=== PATIENT | male | born 1970 | race Caucasian/White ===

== ENCOUNTER 2017-07-31 11:58 | Observation (INO) | END 2017-07-31 15:30 | disposition home or self-care (01) ==

== ENCOUNTER 2018-05-04 06:12 | Inpatient (IN) | payer OTHER ==
[2018-05-03 17:19] VITALS: BMI 31.1
[~2018-05-04] VITALS: Ht 180.3 cm; Wt 102.7 kg
[2018-05-04] VITALS (22 sets, daily range): BP systolic 111–160; BP diastolic 55–86; PULSE 61–92; RESP 12–97; Ht 180.3 cm; Wt 102.7 kg
[~2018-05-04 06:12] MED LIST: CEFAZOLIN 2 GM/50 ML (PMX) 50 ML IVPB ONE; ESCI20TA PO; LACTATED RINGER'S 1,000 ML IV* SCH; OMEP20CA16 PO
[2018-05-04] MEDS ORDERED: ZOLP10TA PO (06:35)
[2018-05-04] MEDS ORDERED: ESCI20TA PO (06:36)
[2018-05-04] MEDS ORDERED: OMEP40CA6 PO (06:36)
[2018-05-04] MEDS ORDERED: SEVOFLURANE 15 MIN ONE (07:00)
[2018-05-04] MEDS ORDERED: DEXAMETHASONE 4 MG/ML 5 ML INJ ONE (07:00)
[2018-05-04] MEDS ORDERED: ONDANSETRON 4 MG INJ ONE (07:00)
[2018-05-04] MEDS ORDERED: CEFAZOLIN 1 GM INJ ONE ×2 (07:00→07:48)
[2018-05-04] MEDS ORDERED: LIDOCAINE 2% (SDV) 5 ML INJ ONE (07:00)
--- NOTE | 2018-05-04 07:18 | PREAC ---
Date/Time of Note Date/Time of Note DATE: 05/04/18 TIME: 07:17 Anesthesia Eval and Record Evaluation Time Pre-Procedure Interview DATE: 05/04/18 TIME: 07:17 Age 47 Sex male NPO: 8 hrs Preoperative diagnosis lumbar myelopathy Planned procedure anterior lumbar fusion Past Medical History Past Medical History: Includes Neuro: Peripheral neuropathy GI: GERD Psych: Depression, Anxiety Surgery & Anesthesia Issues No known issue Meds Anticoagulation: No Beta Alejandro within 24 hr: No Reason Beta Alejandro not given: Pt. not on B-Alejandro Reported Medications Escitalopram Oxalate* (Lexapro*) 20 Mg Tablet, 20 MG PO DAILY, #30 TAB 05/04/18 Omeprazole* (Omeprazole*) 40 Mg Capsule.dr, 40 MG PO BID, #30 CAP 05/04/18 Zolpidem Tartrate* (Ambien*) 10 Mg Tablet, 10 MG PO QHS PRN for INSOMNIA, TAB 05/04/18 Discontinued Reported Medications Escitalopram Oxalate* (Lexapro*) 20 Mg Tablet, 20 MG PO DAILY, #30 TAB 07/31/17 Omeprazole* (Omeprazole*) 20 Mg Capsule.dr, 20 MG PO DAILY, #30 CAP 07/31/17 Current Medications Lactated Ringer's 1,000 ml @ 0 mls/hr Q0M IV* ; Start 05/04/18 at 06:00; Stop 05/04/18 at 23:00 Meds reviewed: Yes Allergies Coded Allergies: No Known Allergy (Unverified , 05/04/18) Allergies Reviewed: Yes Labs/Studies Labs Reviewed: Reviewed by anesthesiologist Blood Bank Test 05/04/18 06:46 Blood Product Summary Counts test: N/A Studies: ECG, CXR Pre-procedure Exam Last vitals Vital Signs Date Temp Pulse Resp B/P (MAP) Pulse Ox O2 O2 Flow FiO2 Time Delivery Rate 05/04/18 97.1 61 18 131/77 99 Room Air 06:40 (95) Airway: Adequate mouth opening, Adequate thyromental dist Mallampati: Mallampati III Teeth: Normal Lung: Normal Heart: Normal ASA Physical Status ASA physical status: 3 Emergency: None Planned Anesthetic General/MAC: ETT Planned Pain Management Parenteral pain med, Local by surgeon Pre-operative Attestations Prior to commencing anesthesia and surgery, the patient was re-evaluated, there was verification of: *The patient's identity *The results of appropriate recent lab work and preoperative vital signs *The above evaluation not changing prior to induction *Anesthetic plan, risk benefits, alternative and complications discussed with patient/family; questions answered; patient/family understands, accepts and wishes to proceed. LIANA SINGH MD May 04, 2018 07:18
[2018-05-04] MEDS ORDERED: LORAZEPAM 2 MG INJ IV PRN (07:30)
[2018-05-04] MEDS ORDERED: IPRATROPIUM (NEB) 0.5 MG/2.5 ML AMP HHN PRN (07:30)
[2018-05-04] MEDS ORDERED: FENTAnyl 50 MCG/ML VIAL IV PRN ×2 (07:30)
[2018-05-04] MEDS ORDERED: HYDROmorphONE 1 MG/5 ML IV SYRINGE IV PRN ×3 (07:30)
[2018-05-04] MEDS ORDERED: hydrALAzine 20 MG INJ IV PRN (07:30)
[2018-05-04] MEDS ORDERED: LEVALBUTEROL (NEB) 1.25 MG/0.5 ML AMP HHN PRN (07:30)
[2018-05-04] MEDS ORDERED: HALOPERIDOL 5 MG INJ IV PRN (07:30)
[2018-05-04] MEDS ORDERED: PROCHLORPERAZINE 10 MG INJ IV PRN (07:30)
[2018-05-04] MEDS ORDERED: MEPERIDINE 25 MG INJ IV PRN (07:30)
[2018-05-04] MEDS ORDERED: ONDANSETRON 4 MG INJ IV PRN ×2 (07:30→14:00)
[2018-05-04] MEDS ORDERED: DIPHENHYDRAMINE 50 MG INJ IV PRN (07:30)
[2018-05-04] MEDS ORDERED: LABETALOL HCL 20MG INJ IV PRN (07:30)
[2018-05-04] MEDS ORDERED: MIDAZOLAM 1 MG/ML 2 ML INJ IV PRN (07:30)
[2018-05-04] MEDS ORDERED: MIDAZOLAM 1 MG/ML 2 ML INJ ONE (07:34)
[2018-05-04] MEDS ORDERED: PROPOFOL 20 ML ONE (07:34)
[2018-05-04] MEDS ORDERED: SUCCINYLCHOLINE CHLORIDE 100 MG/5 ML SYG IV ONE (07:35)
[2018-05-04] MEDS ORDERED: ROCURONIUM 50 MG INJ ONE (07:35)
--- NOTE | 2018-05-04 07:35 | HPN ---
Date/Time of Note Date/Time of Note DATE: 05/04/18 TIME: 07:35 Interval H&P Admission Note Pt. seen H&P reviewed: No system changes AUTUMN SWENSON MD May 04, 2018 07:35
[2018-05-04] MEDS ORDERED: METOCLOPRAMIDE 10 MG INJ ONE (07:37)
[2018-05-04] MEDS ORDERED: GELATIN SIZE 100 SPONGE ONE (07:48)
[2018-05-04] MEDS ORDERED: BUPIVACAINE 0.5%/EPI (SDV) 30 ML INJ ONE (07:48)
[2018-05-04] MEDS ORDERED: HEPARIN 1000 UNITS/ML 10 ML INJ ONE (07:49)
[2018-05-04] MEDS ORDERED: THROMBIN 5000 UNIT VIAL ONE (07:49)
[2018-05-04] MEDS ORDERED: HYDROmorphONE 2 MG/ML SYG ONE (10:14)
[2018-05-04] MEDS ORDERED: LABETALOL HCL 20MG INJ ONE (10:17)
[2018-05-04] MEDS ORDERED: NACL 0.9% 3 ML SYG IV SCH (14:00)
[2018-05-04] MEDS ORDERED: PROCHLORPERAZINE 10 MG TAB PO PRN (14:00)
[2018-05-04] MEDS ORDERED: HYDROCODONE/APAP (5/325) TAB PO PRN (14:00)
[2018-05-04] MEDS ORDERED: NALOXONE (0.4 MG/ML) INJ IV PRN (14:00)
[2018-05-04] MEDS ORDERED: HYDROmorphONE 0.2 MG/ML PCA IV SCH (14:00)
[2018-05-04] MEDS ORDERED: AL HYDROX/MG HYDROX/SIMETH 30 ML CUP PO PRN (14:00)
--- NOTE | 2018-05-04 14:15 | OPR ---
Date/Time of Note Date/Time of Note DATE: 05/04/18 TIME: 14:05 Operative Report Free Text/Dictation DATE OF OPERATION: 05/04/2018 PREOPERATIVE DIAGNOSES: 1. L4-5 severe lumbar degenerative disk disease w/ Left greater than right sided foraminal stenosis with radiculopathy 2. Obesity (BMI 31.6 kg.m2) POSTOPERATIVE DIAGNOSES: 1. L4-5 severe lumbar degenerative disk disease w/ Left greater than right sided foraminal stenosis with radiculopathy 2. Obesity (BMI 31.6 kg.m2) OPERATION PERFORMED: 1. Anterior lumbar interbody fusion L4-5 2. Placement of anterior interbody device L4-5 3. Placement of posterior spinal segmental instrumentation L4-5 4. Posterior spinal fusion L4-5 5. Interpretation of neuromonitoring SURGEON: Autumn Swenson MD Vascular surgeon: Mikie Holloway MD ANESTHESIA: General endotracheal ESTIMATED BLOOD LOSS: 250 cc SURGICAL INDICATION: The patient is a 47 year-old woman who presents with an increasing history of back and bilateral (left greater than right) leg pain. The patient was found to have severe L4-5 with associated foraminal stenosis in setting of prior laminectomy. The patient had failed conservative treatments. Risks, benefits and alternatives to an anterior and posterior spinal fusion with instrumentation were explained to the patient including but not exclusive of bleeding, infection, visceral injury, nerve injury, nonunion, instrumentation failure, lack of symptom relief, myocardial infarction, stroke, and pulmonary embolism, and they wished to proceed. DESCRIPTION OF TECHNIQUE: The patient was identified in the preoperative area and taken to the operating room. Rapid induction of general endotracheal anesthesia was performed. Patient was given 2 grams of IV ancef for prophylaxis. The patient was positioned in the supine position on the operative table. All bony prominences were well padded. The patient's abdomen and left flank were prepped and draped in the usual sterile fashion. An oblique skin incision was made across the L4-L5 level by our vascular surgeon Dr. Holloway. Please note that given the patient's obesity with BMI of 31.6 and adhesions an additional time (1 hour) was taken for exposure and placement of the anterior interbody as well as posterior decompression and instrumentation. After the exposure was completed, I performed a L4-L5 diskectomy. The disc was incised using a sharp 15 mm blade. I then used a hoyt elevator to loosen the disk material from the superior and inferior endplates. I then used a rongeur to remove the disc material and a series of curved and straight curettes to evacuate the disc space. I also used a series of pituitaries and kerrisons to ensure appropriate end plate preparation. Attention was placed to ensure removal of disk material to bleeding endplates without violation of the endplate. I then used the trial rasps to prepare and size the disc space and was able to place a 15 mm trial allograft FRA spacer with 8 degrees of lordosis. To ensure appropriate sizing of the implant, I checked for fit and placement under C arm control and I felt the 8 degree lordotic 15 mm cage gained good lordosis and christian of disc height and was an appropriate fit. I then inserted the 15mm RFA cage after the trail. This cage was filled with a extra-small BMP and morselized bone allograft. A butress screw with a washer was then placed in the L4 vertebral body using the guide under fluoroscopy . Additional morselized allograft was placed around and anterior to the cage in the disc space. 2mL of tisseal was also used prior to placement of the cage in order to reduce the risk of BMP radiculitis. The wound was then irrigated. X-rays were taken to check for instruments. The wound was then closed by our vascular access surgeon in standard technique. The posterior rectus sheath and anterior rectus sheath were both repaired. Sterile dressing was then placed. Attention was then turned toward the decompression and instrumented fusion procedure from L4-L5. At this point, the patient was flipped to the prone position with all bony prominences well-padded on a Shiraz table. We ensured that the antibiotics were appropriately redosed. The lumbar spine was then prepped and draped in sterile fashion. A timeout was once again performed. We then focused on placement of posterior spinal segmental instrumentation from L4-5. Using intraoperative fluoroscopy, the pedicles were identified at each level. Care was taken to alter the fluoroscopic view to have a true AP and lateral at each level. Jamshidi needles were then passed down to the lateral aspect of the pedicles through stab incisions. The Jamshidi needles were mal leted into the pedicles. These were also performed under EMG guidance. Care was taken to ensure that the needles did not pass the medial wall of the pedicle on the AP view prior to checking that the needle was past the posterior wall of the vertebral body. The needles were then malleted further into the vertebral bodies themselves. Guidewires were passed through the needles and the needles were removed. Taps were applied over the guidewires. Screws were then placed bilaterally into the vertebral bodies. AP and lateral views confirmed appropriate placement of the instrumentation. Attention was turned toward the posterior spinal fusion from L4-5. Rods were selected of the appropriate length and placed into the screw heads. End caps were applied and final tightening was performed using a sbrjfi-sdfdujg-qwlvhm wrench. The exposed facet joints were decorticated using a ayana. A small nikolay ining amount of allograft was placed into the facet joints to facilitate the posterior fusion. The wound was irrigated copiously using normal saline. The fascia was then closed using 1 Vicryl in interrupted fashion. Subcutaneous tissue was closed using 2-0 Vicryl in interrupted fashion. A drain (medium Hemovac)was also placed in the wound. Skin was closed using a running 4-0 Monocryl stitch. The wounds were dressed using Dermabond, sterile gauze and Tegaderm. The patient was returned to the supine position. The patient was extubated immediately postoperatively and taken to the recovery room in stable condition. Patient tolerated the procedure well and left the operating room in stable condition. Procedure Date: May 04, 2018 Preoperative Diagnosis 1. L4-5 severe lumbar degenerative disk disease w/ Left greater than right sided foraminal stenosis with radiculopathy 2. Obesity (BMI 31.6 kg.m2) Postoperative Diagnosis 1. L4-5 severe lumbar degenerative disk disease w/ Left greater than right sided foraminal stenosis with radiculopathy 2. Obesity (BMI 31.6 kg.m2) Operation/Procedure Performed 1. Anterior lumbar interbody fusion L4-5 2. Placement of anterior interbody device L4-5 3. Placement of posterior spinal segmental instrumentation L4-5 4. Posterior spinal fusion L4-5 5. Interpretation of neuromonitoring Surgeon see signature line Sander [employer]isher Vascular access: Mikie Holloway MD (Anterior only) Anesthesia Type: general Estimated Blood Loss: 200 - 250 ml's Transfusion none Specimen None Grafts/Implants L4 and L5 Nuvasive Screws 6.5 x 45mm x4 Extra-Small BMP 30 cc of cortico-cancellous bone ALTO CINCO/Synthes 15mm 8 degree Lordotic Anterior FRA allograft cage 6x24 mm buttress scew and washer Complications none Pt Condition Post Procedure: stable Disposition: PACU Procedure Description The patient was identified in the preoperative area and taken to the operating room. Rapid induction of general endotracheal anesthesia was performed. Patient was given 2 grams of IV ancef for prophylaxis. The patient was positioned in the supine position on the operative table. All bony prominences were well padded. The patient's abdomen and left flank were prepped and draped in the usual sterile fashion. An oblique skin incision was made across the L4-L5 level by our vascular surgeon Dr. Holloway. Please note that given the patient's obesity with BMI of 31.6 and adhesions an additional time (1 hour) was taken for exposure and placement of the anterior interbody as well as posterior decompression and instrumentation. After the exposure was completed, I performed a L4-L5 diskectomy. The disc was incised using a sharp 15 mm blade. I then used a hoyt elevator to loosen the disk material from the superior and inferior endplates. I then used a rongeur to remove the disc material and a series of curved and s traight curettes to evacuate the disc space. I also used a series of pituitaries and kerrisons to ensure appropriate end plate preparation. Attention was placed to ensure removal of disk material to bleeding endplates without violation of the endplate. I then used the trial rasps to prepare and size the disc space and was able to place a 15 mm trial allograft FRA spacer with 8 degrees of lordosis. To ensure appropriate sizing of the implant, I checked for fit and placement under C arm control and I felt the 8 degree lordotic 15 mm cage gained good lordosis and christian of disc height and was an appropriate fit. I then inserted the 15mm RFA cage after the trail. This cage was filled with a extra- small BMP and morselized bone allograft. A butress screw with a washer was then placed in the L4 vertebral body using the guide under fluoroscopy . Additional morselized allograft was placed around and anterior to the cage in the disc space. 2mL of tisseal was also used prior to placement of the cage in order to reduce the risk of BMP radiculitis. The wound was then irrigated. X-rays were taken to check for instruments. The wound was then closed by our vascular access surgeon in standard technique. The posterior rectus sheath and anterior rectus sheath were both repaired. Sterile dressing was then placed. Attention was then turned toward the decompression and instrumented fusion procedure from L4-L5. At this point, the patient was flipped to the prone position with all bony prominences well-padded on a Shiraz table. We ensured that the antibiotics were appropriately redosed. The lumbar spine was then prepped and draped in sterile fashion. A timeout was once again performed. We then focused on placement of posterior spinal segmental instrumentation from L4-5. Using intraoperative fluoroscopy, the pedicles were identified at each level. Care was taken to alter the fluoroscopic view to have a true AP and lateral at each level. Jamshidi needles were then passed down to the lateral aspect of the pedicles through stab incisions. The Jamshidi needles were malleted into the pedicles. These were also performed under EMG guidance. Care was taken to ensure that the needles did not pass the medial wall of the pedicle on the AP view prior to checking that the needle was past the posterior wall of the vertebral body. The needles were then malleted further into the vertebral bodies themselves. Guidewires were passed through the needles and the needles were removed. Taps were applied over the guidewires. Screws were then placed bilaterally into the vertebral bodies. AP and lateral views confirmed appropriate placement of the instrumentation. Attention was turned toward the posterior spinal fusion from L4-5. Rods were selected of the appropriate length and placed into the screw heads. End caps were applied and final tightening was performed using a qydpxd-ytzeumo-eqmwof wrench. The exposed facet joints were decorticated using a ayana. A small remaining amount of allograft was placed into the facet joints to facilitate the posterior fusion. The wound was irrigated copiously using normal saline. The fascia was then closed using 1 Vicryl in interrupted fashion. Subcutaneous tissue was closed using 2-0 Vicryl in interrupted fashion. A drain (medium Hemovac)was also placed in the wound. Skin was closed using a running 4-0 Monocryl stitch. The wounds were dressed using Dermabond, sterile gauze and Tegaderm. The patient was returned to the supine position. The patient was extubated immediately postoperatively and taken to the recovery room in stable condition. Patient tolerated the procedure well and left the operating room in stable condition. AUTUMN SWENSON MD May 04, 2018 14:15
[2018-05-04] MEDS ORDERED: FENTAnyl 50 MCG/ML VIAL ONE (14:55)
[2018-05-04] MEDS ORDERED: HYDROmorphONE 1 MG/5 ML IV SYRINGE IV ONE (14:55)
--- NOTE | 2018-05-04 16:05 | NUR ---
PACU NOTES: PATIENT AWAKE AND ALERT. ON ROOM AIR 97% S/P L4-L5 ANTERIOR AND POSTERIOR INTER BODY FUSION AND INSTRUMENTATION W/ DRESSING ON ABDOMEN AND BACK W/ TEGADERM NO DRAIN. NO BLEEDING ABLE TOMOVE AND REPOSITION IN BED ASSESSED BY DR. SWENSON IN PACU. RIGHT IJ CENTRAL LINE AND A-LINE ON RIGHT RADIAL DISCONTINUED NO HEMATOMA NO BLEEDING. PILLAI CATH DRAINING YELLOW URINE. LITHOGRAPHIC PLATEMAKER DILAUDID STARTED AND MEDICATED WITH FENTANYL FOR PAIN. TOLERATED P.O FLUIDS. ABLE TO DO INCENTIVE SPIROMETER UPTO [address] BROCK HERE IN PACU. PHYSICAL THERAPY WORKED WITH THE PATIENT. NOTIFIED OF TRANSFER TO ROOM 424.
--- NOTE | 2018-05-04 16:16 | NUR ---
PT EVAL Therapy day number 1 Evaluation Start Time 15:20 Evaluation Total Time 0 min Subjective Current complaint of pain Pain Scale NUMERIC Pain Intensity 9 (0-10) Patient Stated Goal for Pain Relief 10 (0-10) Pain Level Comment low back and hip pain Pre Treatment Vital Signs Stable Yes - 143/55, 84 bpm, 98%O2 sats on RA Exercise Assessment Label Bilat Lower Extremity Exercise Type Active ROM Additional Exercise Comments semi-supine APs, heel slides Supine to Sit Minimum Assist Transfer Sit to Stand Ability Contact Guard Assist Bed Mobility Sit to Supine Contact Guard Assist Sitting Tolerance 15 min Patient uses wheelchair Not Applicable Gait Assist Levels Contact Guard Assist Assistive Devices Front Wheel Walker Ambulation Distance 2 feet Additional Gait Comments pre-gait training, forward and backwards ambulation 2' limited due to lines Static Sitting Balance Good Dynamic Sitting Balance Good Standing Static Balance Fair plus Dynamic Standing Balance Fair plus Additional Balance Assessments Comments FWW Safety Judgement Good Activity Tolerance Good Equipment Present A pump Ackerman Catheter IV pump TICKETING CLERK Additional Equipment Present LS CORSET Post Treatment Pain Intensity 9 0-10 Variance Documentation SEE PT EVAL PT Technical Record Comment PT EVAL Pt is a 47 yo M with PMH of L4-L5 umbar degenerative disk disease with L > R-sided foraminal stenosis with radiculopathy who is now S/P anterior lumbar interbody fusion L4-L5, placement of anterior interbody device L4-L5, placement of posterior spinal segemental instrumentation L4-L5, posterior spinal fusion L4-L5. Pt received in RECOVERY ROOM. Precautions: spinal precautions, LSO when OOB (LS corset okay until pt received LSO) PLOF: Pt lives with and kids in a 2SH with 0STE. Pt has shower access on the first floor. Ambulatory without AD. Pt has a FWW at home. CLOF: kettle girl cleared pt for PT evaluation. Pt received in bed, vitals assessed and stable, agreeable to PT eval. Pt educated in spinal precautions, use of LSO (corset at this time), and purpose of PT evaluation. Pt donned LS corset for all OOB activities. Mobility assessed as described above, pt able to maintain spinal precautions with sup>sit and initiate pre-gait training 2' forward and backwards x 3. Pt returned to bed, all needs in reach, no signs of distress, RN notified of pt's status. Recommendation: Pt presents at [facility]-Daniel level assist for all mobility tasks and able to maintain spinal precautions throughout. Gait distance (2') limited due to recovery room lines and tubes. Pt will benefit from additional skilled PT for further moblity training including stair training. Anticipating home discharge with family assistance as needed once cleared by MD. Pt may need FWW. PLan: Continue c PT POC (QID x 7), including gait and stair training
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
--- NOTE | 2018-05-04 19:00 | NUR ---
EOSS A AND O X 4. ARRIVED TO UNIT POST ANTERIOR AND POSTERIOR BACK SURGERY ON L4-L5. DRESSINGS CLEAN, DRY AND INTACTPATIENT REPORTS HIS PAIN IS 7/10, AND THAT THIS IS TOLERABLE FOR HIM. EDUCATED ON USE OF BIOMATERIALS ENGINEER AND ENCOURAGED APTEINT TO ALERT RN IF PAIN WAS NOT WELL MANAGED WITH BIOMATERIALS ENGINEER DILAUDID. ENCOURAGED USE OF IS. VSS. TOLERATING CLEAR LIQUID DIET. HOURLY ROUNDING PERFORMED, BED KEPT IN LOW, LOCKED POSITION, CALL LIGHT WITHIN REACH.
[2018-05-04] MEDS ORDERED: KETOROLAC 30 MG INJ IV STA (19:53)
--- NOTE | 2018-05-04 20:04 | OPR ---
DATE OF OPERATION: PREOPERATIVE DIAGNOSIS: Degenerative disk disease, lumbosacral spine. POSTOPERATIVE DIAGNOSIS: Degenerative disk disease, lumbosacral spine. PROCEDURES: 1. Anterior retroperitoneal exposure interbody fusion lumbosacral spine L4 to L5. 2. Modifier 22, unusually difficult operation secondary to adhesions. 3. Mobilization of the aorta and vena cava. 4. Ligation of the left iliolumbar vein. SURGEON: Joshua Nova MD COSURGEON: Brien Moreland MD ESTIMATED BLOOD LOSS: 100 mL. ANESTHESIA: General. INFORMED CONSENT: Risks, benefits, complications, alternative therapies, high-risk nature of the ope ration were fully explained to the patient and the family, consent obtained. Risks and benefits that were explained to the patient and the family included but not limited to bleeding, infection, damage to bowel, damage to ureter, wound infection, wound dehiscence, DVT, PE, loss of limb, loss of life, high-risk nature of the operation were fully explained and stressed to the patient. All questions we re answered. OPERATIVE TECHNIQUE: The patient was placed in supine position, prepped and draped in usual sterile fashion. Time-out was called. Antibiotics were given. I made an 8 cm incision in the left lower qu adrant horizontal fashion below the umbilicus. Incision was taken down to subcutaneous tissue which was then opened using electrocautery. Left anterior rectus sheath was opened in the direction of the wound. Left rectus muscle was mobilized superiorly and inferiorly about 5 cm. Posterior rectus she ath was incised superiorly about 3 cm. Bookwalter retractor was placed retracting the bowel contents to the right, left rectus muscle to the left. I dissected the left common iliac artery and vein. I identified the psoas muscle ureter and protected the ureter. Left common iliac artery and vein was dissected using a peanut dissector. The left iliolumbar veins were ligated using 2-0 silk ties and a titanium clip. The lowest segmental vessels on the left side were ligated using titanium clips. Ex posure for the aorta and vena cava were mobilized to the right side. After mobilization was done, ex posure for L4 to L5 was obtained by retracting aorta and vena cava to the right. We proceeded with t he diskectomy and placement of the new cage. Please refer to Dr. Swenson's dictation for the detai ls of that operation. After all the x-rays were satisfactory read by Dr. Swenson, needle counts an d sponge count was correct. The wound was irrigated using antibiotic solution. The posterior rectus sheath was closed using 0 Vicryl suture in running fashion. Anterior rectus sheath was closed using a #1 Vicryl suture in running fashion with interrupted sutures in the middle. The wound was irrigat ed again and closed in 2 layers of 2-0 Vicryl suture for subQ and Steri-Strips for the skin. The pat ient tolerated procedure well. Dictated By: JOSHUA NOVA MD FM/NTS Conf#: [id number] DID#: [id number] CC: AUTUMN SWENSON MD; MIGUEL ANGEL BROCK MD;*[facility]*
[2018-05-04] MEDS: RANITIDINE 150 MG TAB PO SCH (21:05)
[2018-05-04] MEDS: SOD CHLORIDE 0.9% 1,000 ML IV SCH (21:06)
[2018-05-04] MEDS: HYDROmorphONE 0.2 MG/ML PCA IV SCH (22:19)
[2018-05-05] VITALS: BP 107/65; PULSE 95; RESP 20
--- NOTE | 2018-05-05 02:19 | PAC ---
Date/Time of Note Date/Time of Note DATE: 05/05/18 TIME: 02:19 Post-Anesthesia Notes Post-Anesthesia Note Last documented vital signs Vital Signs Date Temp Pulse Resp B/P (MAP) Pulse Ox O2 O2 Flow FiO2 Time Delivery Rate 05/04/18 97.9 88 20 117/70 97 Room Air 19:30 (86) Activity: WNL Respiratory function: WNL Cardiovascular function: WNL Mental status: Baseline Pain reasonably controlled: Yes Hydration appropriate: Yes Nausea/Vomiting absent: Yes LIANA SINGH MD May 05, 2018 02:19
[2018-05-05] MEDS: SOD CHLORIDE 0.9% 1,000 ML IV SCH ×2 (03:09→15:05)
[2018-05-05] MEDS: PANTOPRAZOLE (EC) 40 MG TAB PO SCH (05:18)
--- NOTE | 2018-05-05 06:11 | NUR ---
PT HAS RESTED MOST NOC WITH NO COMPLAINTS VERBALIZED. AWAKENS EASILY WHEN ENTERING ROOM ET STATES PAIN IS CONTROLLED WITH THE FIELD SALES REPRESENTATIVE. VSS AFEBRILE. PILLAI PATENT DRAINING TO GRAVITY. DRINKING FLUIDS WITH NO SS N/V. NOW IN BED WATCHING TV. USING FIELD SALES REPRESENTATIVE AT REGULAR INTERVALS. VSS AFEBRILE. WILL CONTINUE WITH POC
[2018-05-05] MEDS: ACETAMINOPHEN 325 MG TAB PO PRN ×3 (07:19→23:02)
[2018-05-05] MEDS: HYDROmorphONE 0.2 MG/ML PCA IV SCH ×2 (07:43→17:34)
--- NOTE | 2018-05-05 08:15 | NUR ---
PT NOTE Therapy day number 2 Subjective Current complaint of pain Pain Scale NUMERIC Pain Intensity 5 (0-10) Patient Stated Goal for Pain Relief 0 (0-10) Pain Level Comment back pain Transfer Training Start Time 08:15 Supine to Sit Stand by Assist Transfer Sit to Stand Ability Stand by Assist Bed Mobility Sit to Supine Stand by Assist Transfer Training End Time 08:30 Total Transfer Training Time 15 min (8-127) Patient uses wheelchair Not Applicable Gait Training Start Time 08:30 Gait Assist Levels Stand by Assist Assistive Devices Front Wheel Walker Ambulation Distance 50 feet Additional Gait Comments slow nettie, reciprocal gait, decreased step length/stride, steady gait Gait Training End Time 08:54 Total Gait Training Treatment Time 24 min (8-127) Static Sitting Balance Good Dynamic Sitting Balance Good Standing Static Balance Good Dynamic Standing Balance Fair plus Additional Balance Assessments Comments FWW Safety Judgement Good Activity Tolerance Good Equipment Present A pump Ackerman Catheter IV pump LITIGATION ASSISTANT Additional Equipment Present LS CORSET Post Treatment Pain Intensity 5 0-10 Quality Indicators Dizziness Variance Documentation SEE BELOW AND PT NOTE Total Treament Time 39 min (8-127) Total Minutes 39 Total Units 3 PT Technical Record Comment PT NOTE S: Pt stated, "I didn't get much sleep last night, so I am just barely getting comfortable." Agreeable for PT and cleared per MAR Flores O: Received pt in R side-lying, alert. Reeducated pt w/spinal precautions and pt verbalized fair understanding. Bed mobility w/HOB elevated using BR SBA/Supervised. Pt reported mild dizziness upon sitting EOB, however reported it went away within 1 minute. Pt donned/doffed LS corset at EOB [place] (LSO brace has not arrived yet). STS to FWW SBA/Supervised. Gait training performed w/FWW 50' x 2 SBA/Supervised. Noted slow nettie, reciprocal gait, decreased step length/stride, (B) shoulder tension, steady gait, and no LOB/buckling. Pt required VCs/TCs to increase nettie/step length/stride, and relax shoulders. Assisted pt back to room BTB. Left pt in comfort position, call light/phone within reach, SCD's reapplied, bed alarmed, and all needs met. MAR Flores informed of pt's status. A: Good tolerance to tx. Pt showed no signs of distress or SOB during or after tx. No c/o nausea throughout tx. Bed mobility, transfers, and gait assistance/distance improved compared to previous tx. P: Continue POC and progress as tolerated.
[2018-05-05 08:28] VITALS: BP 115/64; PULSE 78; RESP 18
[2018-05-05] MEDS: METHOCARBAMOL 500 MG TAB PO PRN ×2 (09:30→18:49)
[2018-05-05] MEDS: DOCUSATE SODIUM 100 MG CAP PO SCH ×2 (09:30→20:08)
[2018-05-05] MEDS: ESCITALOPRAM 10 MG TAB PO SCH (09:30)
--- NOTE | 2018-05-05 09:30 | NUR ---
RIGID BRACE ORDERED TO CENTRAL SUPPLY AND REQUESTED TO DELIVERY TODAY
--- NOTE | 2018-05-05 11:31 | NUR ---
PT NOTE Therapy day number 2 Subjective Current complaint of pain Pain Scale NUMERIC Pain Intensity 5 (0-10) Patient Stated Goal for Pain Relief 0 (0-10) Pain Level Comment back and (B) hip pain Transfer Training Start Time 11:31 Supine to Sit Supervised Transfer Sit to Stand Ability Supervised Bed Mobility Sit to Supine Supervised Transfer Training End Time 11:45 Total Transfer Training Time 14 min (8-127) Patient uses wheelchair Not Applicable Gait Training Start Time 11:45 Gait Assist Levels Supervised Assistive Devices Front Wheel Walker Ambulation Distance 200 feet Additional Gait Comments slow nettie, reciprocal gait, decreased step length/stride, steady gait Gait Training End Time 12:11 Total Gait Training Treatment Time 26 min (8-127) Stair Climbing Ability Stand by Assist Number of Stairs 4 Stairs Additional Stairs Assist Comments 4 steps x 1 step to pattern using 1 rail L side w/VCs for sequence Static Sitting Balance Good Dynamic Sitting Balance Good Standing Static Balance Good Dynamic Standing Balance Fair plus Additional Balance Assessments Comments FWW Safety Judgement Good Activity Tolerance Good Equipment Present A pump Ackerman Catheter IV pump WEIGHING STATION OPERATOR Additional Equipment Present LS CORSET Post Treatment Pain Intensity 7 0-10 Variance Documentation SEE BELOW AND PT NOTE Total Treament Time 40 min (8-127) Total Minutes 40 Total Units 3 PT Technical Record Comment PT NOTE S: Pt stated, "I am alright." Agreeable for PT and cleared per MAR Flores O: Received pt in semi-fowlers, alert. Bed mobility w/HOB elevated using BR Supervised. Pt donned/doffed LS corset at EOB [place] (LSO brace has not arrived yet). STS to FWW Supervised. Gait training performed w/FWW 200' Supervised. Noted slow nettie, reciprocal gait, decreased step length/stride, (B) shoulder tension, steady gait, and no LOB/buckling. Pt required Min VCs/TCs to increase nettie/step length/stride, and relax shoulders. Stair training performed 4 steps x 1 step to pattern using 1 rail L side w/VCs for sequence SBA, fair demonstration. Assisted pt back to room BTB. Left pt in comfort position, call light/phone within reach, SCD's reapplied, bed alarmed, and all needs met. MAR Flores informed of pt's status and pt was left attended w/RN Kerline G. post tx. A: Good tolerance to tx. Pt showed no signs of distress or SOB during or after tx. No c/o dizziness or nausea throughout tx. Bed mobility, transfers, and gait assistance/distance improved compared to previous tx. P: Continue POC and progress as tolerated.
--- NOTE | 2018-05-05 12:40 | CONS ---
Date/Time of Note Date/Time of Note DATE: 05/05/18 TIME: 12:39 Assessment/Plan Assessment/Plan Assessment/Plan 1. Stable post op lumbar back surgery 2. Labs reviewed Result Diagram: 05/05/187 05/05/187 Results 24hrs Laboratory Tests Test 05/05/18 04:27 05/05/18 07:36 Hemoglobin 12.3 L Hematocrit 37.8 L Sodium Level 139 Potassium Level 4.2 Chloride Level 101 Carbon Dioxide Level 29 Anion Gap 9 Blood Urea Nitrogen 11 Creatinine 1.06 Est Glomerular Filtrat Rate mL/min > 60 Glucose Level 121 Calcium Level 8.5 Lab Scanned Report REFERENCE LAB Consultation Date/Type/Reason Admit Date/Time May 04, 2018 at 06:12 Initial Consult Date Detailed Summary Respiratory: cough (mild and not productive) Cardiovascular: No chest pain, No lightheadedness Gastrointestinal: no complaints Genitourinary: other (heath in place) Exam/Review of Systems Vital Signs Vitals Vital Signs Date Temp Pulse Resp B/P (MAP) Pulse Ox O2 O2 Flow FiO2 Time Delivery Rate 05/05/18 18 09:40 05/05/18 98.6 78 115/64 100 Room Air 08:28 (81) Intake and Output 05/04/18 05/04/18 05/05/18 1515:00 23:00 07:00 IntakeIntake Total 2625 ml 1410 ml OutputOutput Total 650 ml 100 ml 1100 ml BalanceBalance 1975 ml -100 ml 310 ml Exam Neck: No jvd Respiratory: clear to auscultation Cardiovascular: regular rate and rhythm Gastrointestinal: soft Extremities: No edema (and no calf tend) Medications Medications Current Medications Acetaminophen/ Hydrocodone Bitart ([place] (5/325)) 1 tab Q4H PRN PO PAIN LEVEL 1-5; Start 05/04/18 at 14:00 Acetaminophen/ Hydrocodone Bitart ([place] (5/325)) 2 tab Q4H PRN PO PAIN LEVEL 6-10; Start 05/04/18 at 14:00 Prochlorperazine (Compazine) 10 mg Q4H PRN PO NAUSEA AND/OR VOMITING; Start 05/04/18 at 14:00 Ondansetron HCl (Zofran Inj) 4 mg Q6H PRN IV NAUSEA AND/OR VOMITING; Start 05/04/18 at 14:00 Al Hydrox/Mg Hydrox/Simethicone (Mag-Al Plus) 15 ml Q4H PRN PO CONSTIPATION; Start 05/04/18 at 14:00 Docusate Sodium (Colace) 100 mg BID PO Last administered on 05/05/18 09:30; Admin Dose 100 MG; Start 05/05/18 at 09:00 Acetaminophen (Tylenol Tab) 650 mg Q4H PRN PO FEVER Last administered on 05/05/18 07:19; Admin Dose 650 MG; Start 05/04/18 at 14:00 IV Flush (NS 3 ml) 3 ml PER PROTOCOL IV ; Start 05/04/18 at 14:00 Naloxone HCl (Narcan) 0.2 mg Q2M PRN IV overdose; Start 05/04/18 at 14:00 Escitalopram Oxalate (Lexapro) 20 mg DAILY PO Last administered on 05/05/18 09:30; Admin Dose 20 MG; Start 05/05/18 at 09:00 Pantoprazole (Protonix Tab) 40 mg DAILY@06 PO Last administered on 05/05/18 05:18; Admin Dose 40 MG; Start 05/05/18 at 06:00 Ranitidine HCl (Zantac) 150 mg HS PO Last administered on 05/04/18 21:05; Admin Dose 150 MG; Start 05/04/18 at 21:00 Sodium Chloride 1,000 ml @ 80 mls/hr [id number] IV Last administered on 05/05/18 03:09; Admin Dose 80 MLS/HR; Start 05/04/18 at 16:00 Hydromorphone HCl (Dilaudid WATER SERVICE SUPERVISOR) MG/HR CONTINUOUS RATE ... Q4PCA IV Last administered on 05/05/18 07:43; Admin Dose 6 MG; Start 05/04/18 at 20:00 Methocarbamol (Robaxin) 500 mg Q8H PRN PO pain Last administered on 05/05/18 09:30; Admin Dose 500 MG; Start 05/04/18 at 20:00 MIGUEL ANGEL BROCK MD May 05, 2018 12:40
--- NOTE | 2018-05-05 12:50 | NUR ---
Patient reporting hip discomfort related to positioning. Spoke with PT Ana Laura, she stated nicole may sit in a chair or ambulate in the hallway with a walker with nursing staff. Patient stated walking or repositioning to chair would help his hips. Since he will have PT in 20 minutes, he requested to sit in the chair so he could rest before PT. Assisted patient to chair using spinal precautions, patient wearing LS corset. Patient reported he had some pain but that his hip discomfort was improved. He does not want to have the basal rate of his MOBILE LOUNGE DRIVER OR OPERATOR, he has a goal to tolerate some discomfort and continue demand MOBILE LOUNGE DRIVER OR OPERATOR dosing. He does not feel robaxin has made a noticable difference in how he feels. Patient denied further needs, is eating lunch with call light and MOBILE LOUNGE DRIVER OR OPERATOR button within reach.
[2018-05-05] MEDS ORDERED: HYDROmorphONE 0.2 MG/ML PCA IV SCH (13:00)
--- NOTE | 2018-05-05 13:20 | NUR ---
PT NOTE Therapy day number 2 Subjective Current complaint of pain Pain Scale NUMERIC Pain Intensity 4 (0-10) Patient Stated Goal for Pain Relief 0 (0-10) Pain Level Comment back and (B) hip pain Transfer Training Start Time 13:20 Transfer Sit to Stand Ability Supervised Additional Mobility Comments Found/left in chair per pt's request. Transfer Training End Time 13:30 Total Transfer Training Time 10 min (8-127) Patient uses wheelchair Not Applicable Gait Training Start Time 13:30 Gait Assist Levels Supervised Assistive Devices Front Wheel Walker Ambulation Distance 220 feet Additional Gait Comments slow nettie, reciprocal gait, decreased step length/stride, steady gait Gait Training End Time 13:47 Total Gait Training Treatment Time 17 min (8-127) Static Sitting Balance Good Dynamic Sitting Balance Good Standing Static Balance Good Dynamic Standing Balance Fair plus Additional Balance Assessments Comments FWW Safety Judgement Good Activity Tolerance Good Equipment Present A pump Ackerman Catheter IV pump CAKE WRINGER Additional Equipment Present LS CORSET Post Treatment Pain Intensity 6 0-10 Variance Documentation SEE BELOW AND PT NOTE Total Treament Time 27 min (8-127) Total Minutes 27 Total Units 2 PT Technical Record Comment PT NOTE S: Pt stated, "My pain is better than earlier." Agreeable for PT and cleared per MAR Flores O: Received pt sitting in chairside, alert w/family present in room. Pt had LS corset donned already (LSO brace has not arrived yet). STS to FWW Supervised. Gait training performed w/FWW 220' Supervised. Noted slow nettie, reciprocal pattern, decreased step length/stride, (B) shoulder tension, steady gait, and no LOB/buckling. Pt required occasionally VCs/TCs to increase nettie/step length/stride, and relax shoulders. Pt reported sudden onset of abdominal pain during ambulation, pt described as "gas pain", therefore pt requested to go back to the room. Assisted pt back to room back to chair per pt's request. Left pt in comfort position, call light/phone within reach, and all needs met. MAR Flores informed of pt's status. A: Good tolerance to tx. Pt showed no signs of distress or SOB during or after tx. No c/o dizziness or nausea throughout tx. Gait distance improved compared to previous tx. Will initiate stair training in next PT session pending pt's status. P: Continue POC and progress as tolerated.
--- NOTE | 2018-05-05 14:05 | NUR ---
Case Mngt: Spoke with patient and home address verified where 3-1 commode will be delivered. Called [employer]/[phone] and spoke with [employer] and order for bedside commode faxed at ([phone]) with confirmation. Per [facility], order will be processed and will be delivered to patient's address as requested.
--- NOTE | 2018-05-05 15:00 | NUR ---
PT NOTE Therapy day number 2 Subjective Current complaint of pain Pain Scale NUMERIC Pain Intensity 8 (0-10) Patient Stated Goal for Pain Relief 0 (0-10) Pain Level Comment general pain, "achy pain" Transfer Training Start Time 15:00 Supine to Sit Modified Independent Transfer Sit to Stand Ability Supervised Bed Mobility Sit to Supine Modified Independent Additional Mobility Comments bed mobility w/HOB slightly elevated using BR log roll method Transfer Training End Time 15:15 Total Transfer Training Time 15 min (8-127) Patient uses wheelchair Not Applicable Gait Training Start Time 15:30 Gait Assist Levels Supervised Assistive Devices Front Wheel Walker Ambulation Distance 40 feet Additional Gait Comments very slow nettie,reciprocal gait,decreased step length/stride, steady gait Gait Training End Time 15:40 Total Gait Training Treatment Time 10 min (8-127) Static Sitting Balance Good Dynamic Sitting Balance Good Standing Static Balance Good Dynamic Standing Balance Fair plus Additional Balance Assessments Comments FWW Safety Judgement Good Activity Tolerance Poor Equipment Present A pump Ackerman Catheter IV pump AWNING FRAME MAKER Additional Equipment Present LS CORSET Post Treatment Pain Intensity 9 0-10 Variance Documentation SEE BELOW AND PT NOTE Total Treament Time 25 min (8-127) Total Minutes 25 Total Units 2 PT Technical Record Comment PT NOTE S: Pt stated, "I am just feeling worst. I think I have a fever. My whole body hurts and feels achy. I think I am catching a cold." C/O 12/08, however agreeable for PT and cleared per MAR Trevizo. O: Received pt in semi-fowlers, alert w/MAR Flores present in room. MAR Flores assessed pt's temperature and it read 99.6 F, therefore MAR Flores administered Tylenol to pt due to mild fever. Bed mobility w/HOB slightly elevated using BR log roll method Meghan. Pt donned/doffed LS corset at EOB Independently (LSO brace has not arrived yet). STS to FWW Supervised. Gait training performed w/FWW 40' x 2 Supervised. Noted very slow nettie, reciprocal pattern, decreased step length/stride, (B) shoulder tension, steady gait, and no LOB/buckling. Pt required VCs/TCs to increase nettie/step length/stride, and relax shoulders. Pt reported increased pain and "not feeling good", therefore requested to go back to room BTB. Assisted pt back to room BTB. Left pt in comfort position, call light/phone within reach, SCD's reapplied, and all needs met. RN Kerline Trevizo. informed of pt's status. A: Poor tolerance to tx. Pt showed no signs of distress or SOB during or after tx. No c/o dizziness or nausea throughout tx. Gait distance decreased compared to previous tx due to pain and "general body ache" per pt. Pt is clear to ambulate w/nursing staff in hallway w/FWW and LS corset OOB (If LSO brace arrives use this instead vs LS Corset). P: Continue POC and progress as tolerated.
[2018-05-05 15:09] VITALS: BP 129/76; PULSE 90; RESP 18
--- NOTE | 2018-05-05 19:00 | NUR ---
EOSS NO ACUTE INCIDENTS DURING SHIFT. VSS. RECEIVED LSO BRACE, DR. SWENSON STATED THIS BRACE IS OK TO USE IN PLACE OF RIGID BRACE. BASAL RATE OF TRANSMISSION TECHNICIAN DILAUDID D/C AND PATIENT REPORTED PAIN DECREASED TO 3-4/10 WITH USE OF TRANSMISSION TECHNICIAN DILAUDID, ROBAXIN AND TYLENOL. WOUND DRESSINGS INTACT. TOLERATING CLEAR LIQUID DIET. HAS NOT PASSED GAS YET, FEELS HE MAY, DENIES CONSTIPATION. CLEARED TO AMBULATE IN HALLWAY WITH NURSING STAFF. ENDORSED TO IGHT RN. HOURLY ROUNDING PERFORMED, BED IN LOW, LOCKED POSITION. CALL LIGHT KEPT WITHIN REACH.
[2018-05-05 19:20] VITALS: BP 114/67; PULSE 84; RESP 20
[2018-05-05] MEDS: RANITIDINE 150 MG TAB PO SCH (20:08)
[2018-05-06] VITALS: BP 103/57; RESP 20
--- NOTE | 2018-05-06 00:13 | NUR ---
2300 Pt temp 101.0, give Tylenol and recheck VS at midnight and temp 100.5, BP 103/57, HR 91m O2 sat 95% on room air. Applied ice packs underarm, take off blankets, decrease temp of room 2 degrees, encouraged patient to use the incentive inspiratory. Order blood cultures times 2 and lactic acid per protocol.
[2018-05-06 02:30] VITALS: BP 94/52; PULSE 82; RESP 20
[2018-05-06] MEDS: HYDROmorphONE 0.2 MG/ML PCA IV SCH (03:06)
[2018-05-06] MEDS: SOD CHLORIDE 0.9% 1,000 ML IV SCH ×2 (03:12→18:00)
[2018-05-06] MEDS: PANTOPRAZOLE (EC) 40 MG TAB PO SCH (06:23)
[2018-05-06 07:22] VITALS: BP 120/76; PULSE 83; RESP 17
[2018-05-06] MEDS: ACETAMINOPHEN 325 MG TAB PO PRN ×2 (07:42→20:06)
--- NOTE | 2018-05-06 07:48 | NUR ---
END OF SHIFT NOTE: Pt had temp 101.0 last night, given Tylenol prn (see nurse note for 2299). Temp decreased to 99.0. Pt is on dilaudid COOK BARBECUE with good pain control, pain level 3-4/10. Pt clear liquid diet and stated passing gas. Ackerman intact and draining to gravity. Anterior abdomen and posterior back dressing C/D/I. Safety precautions taken, call light in reach, low bed position and hourly rounding.
--- NOTE | 2018-05-06 08:00 | NUR ---
PT RECEIVED IN BED. A,A,OX4. NOT IN ANY ACUTE DISTRESS. THE PLAN OF CARE DISCUSSED W/ THE PT, VERBALIZED UNDERSTANDING. CALL LIGHT IN REACH. PT ENCOURAGED TO CALL FOR ASSISTANCE. WILL CONT. MONITORING.
[2018-05-06] MEDS: DOCUSATE SODIUM 100 MG CAP PO SCH ×2 (09:44→20:05)
[2018-05-06] MEDS: ESCITALOPRAM 10 MG TAB PO SCH (09:45)
[2018-05-06] MEDS: HYDROCODONE/APAP (5/325) TAB PO PRN ×3 (09:47→19:00)
--- NOTE | 2018-05-06 10:06 | CONS ---
Date/Time of Note Date/Time of Note DATE: 05/06/18 TIME: 10:01 Assessment/Plan Assessment/Plan Result Diagram: 05/06/18 0433 05/06/18 0433 Results 24hrs Laboratory Tests Test 05/06/18 00:47 05/06/18 04:33 Lactic Acid Level 0.9 White Blood Count 5.9 Red Blood Count 3.98 L Hemoglobin 11.7 L Hematocrit 35.8 L Mean Corpuscular Volume 89.9 Mean Corpuscular Hemoglobin 29.4 Mean Corpuscular Hemoglobin Concent 32.7 Red Cell Distribution Width 12.0 Platelet Count 156 Mean Platelet Volume 10.4 Immature Granulocytes % 0.200 Neutrophils % 67.2 Lymphocytes % 19.7 Monocytes % 11.9 H Eosinophils % 0.8 Basophils % 0.2 Nucleated Red Blood Cells % 0.0 Immature Granulocytes # 0.010 Neutrophils # 4.0 Lymphocytes # 1.2 Monocytes # 0.7 Eosinophils # 0.1 Basophils # 0.0 Nucleated Red Blood Cells # 0.0 Sodium Level 141 Potassium Level 4.1 Chloride Level 104 Carbon Dioxide Level 32 H Anion Gap 5 Blood Urea Nitrogen 6 L Creatinine 0.99 Est Glomerular Filtrat Rate mL/min > 60 Glucose Level 97 Calcium Level 8.5 Phosphorus Level 3.3 Magnesium Level 2.0 Consultation Date/Type/Reason Admit Date/Time May 04, 2018 at 06:12 Initial Consult Date 24 HR Interval Summary Free Text/Dictation S: 47 yo M POD#2 s/p ALIF L4-5 w/ PSIF. Patient pain controlled w/ INTERNET MARKETING STRATEGIST. Passing gas and tolerating clear diet. OOB w/ PT. Had fever last night x 1. Currently afebrile. Denies any CP or SOB. O: Vital Signs Date Temp Pulse Resp B/P (MAP) Pulse Ox O2 O2 Flow FiO2 Time Delivery Rate 05/06/18 98.1 83 17 120/76 98 Room Air 07:22 (91) 05/06/18 18 06:00 05/06/18 99.0 82 20 94/52 (66) 95 Room Air 02:30 Gen: AAOx3, NAD Abdome: abdomen w/ mild distension, soft, hypoactive BS, incision C/D/I Spin: 09/02 b/l TA/GS/EHL/KE, Incision C/D/I Labs: Laboratory Tests Test 05/05/18 04:27 05/06/18 04:33 Blood Urea Nitrogen 11 mg/dl 6 mg/dl Carbon Dioxide Level 29 mmol/L 32 mmol/L Chloride Level 101 mmol/L 104 mmol/L Creatinine 1.06 mg/dl 0.99 mg/dl Glucose Level 121 mg/dl 97 mg/dl Hematocrit 37.8 % 35.8 % Hemoglobin 12.3 g/dl 11.7 g/dl Potassium Level 4.2 mmol/L 4.1 mmol/L Sodium Level 139 mmol/L 141 mmol/L Platelet Count 156 10^3/UL White Blood Count 5.9 10^3/ul A/P:47 yo M POD#2 s/p ALIF L4-5 w/ PSIF 1. D/C heath 2. D/C INTERNET MARKETING STRATEGIST and start PO [place] 5/325 mg 1-2 tabs Q4 hrs prn pain w/ Dilaudid 0.5mg IV Q 3 for severe breakthrough pain 3. Start regular diet 4. Appreciate med recs 5. Encourage ISS as fever may be secondary to atelectasis 6/ OOB w/ PT w/ LSO brace Exam/Review of Systems Vital Signs Vitals Vital Signs Date Temp Pulse Resp B/P (MAP) Pulse Ox O2 O2 Flow FiO2 Time Delivery Rate 05/06/18 98.1 83 17 120/76 98 Room Air 07:22 (91) Intake and Output 05/05/18 05/05/18 05/06/18 1515:00 23:00 07:00 IntakeIntake Total 1260 ml 1040 ml 1560 ml OutputOutput Total 1600 ml 2500 ml BalanceBalance 1260 ml -560 ml -940 ml Medications Medications Current Medications Acetaminophen/ Hydrocodone Bitart ([place] (5/325)) 1 tab Q4H PRN PO PAIN LEVEL 1-5; Start 05/04/18 at 14:00 Acetaminophen/ Hydrocodone Bitart ([place] (5/325)) 2 tab Q4H PRN PO PAIN LEVEL 6-10 Last administered on 05/06/18at 09:47; Admin Dose 2 TAB; Start 05/04/18 at 14:00 Prochlorperazine (Compazine) 10 mg Q4H PRN PO NAUSEA AND/OR VOMITING; Start 05/04/18 at 14:00 Ondansetron HCl (Zofran Inj) 4 mg Q6H PRN IV NAUSEA AND/OR VOMITING; Start 05/04/18 at 14:00 Al Hydrox/Mg Hydrox/Simethicone (Mag-Al Plus) 15 ml Q4H PRN PO CONSTIPATION; Start 05/04/18 at 14:00 Docusate Sodium (Colace) 100 mg BID PO Last administered on 05/06/18at 09:44; Admin Dose 100 MG; Start 05/05/18 at 09:00 Acetaminophen (Tylenol Tab) 650 mg Q4H PRN PO FEVER Last administered on 05/06/18at 07:42; Admin Dose 650 MG; Start 05/04/18 at 14:00 IV Flush (NS 3 ml) 3 ml PER PROTOCOL IV ; Start 05/04/18 at 14:00 Naloxone HCl (Narcan) 0.2 mg Q2M PRN IV overdose; Start 05/04/18 at 14:00 Escitalopram Oxalate (Lexapro) 20 mg DAILY PO Last administered on 05/06/18at 09:45; Admin Dose 20 MG; Start 05/05/18 at 09:00 Pantoprazole (Protonix Tab) 40 mg DAILY@06 PO Last administered on 05/06/18at 06:23; Admin Dose 40 MG; Start 05/05/18 at 06:00 Ranitidine HCl (Zantac) 150 mg HS PO Last administered on 05/05/18at 20:08; Admin Dose 150 MG; Start 05/04/18 at 21:00 Sodium Chloride 1,000 ml @ 80 mls/hr [id number] IV Last administered on 05/06/18at 03:12; Admin Dose 80 MLS/HR; Start 05/04/18 at 16:00 Methocarbamol (Robaxin) 500 mg Q8H PRN PO pain Last administered on 05/05/18 18:49; Admin Dose 500 MG; Start 05/04/18 at 20:00 Hydromorphone HCl (Dilaudid) 0.5 mg Q3H PRN IV SEVERE PAIN LEVEL 7-10; Start 05/06/18 at 09:00 AUTUMN SWENSON MD May 06, 2018 10:06
--- NOTE | 2018-05-06 11:25 | CONS ---
Date/Time of Note Date/Time of Note DATE: 05/06/18 TIME: 11:24 Assessment/Plan Assessment/Plan Assessment/Plan 1. Doing well post op lumbar back surgery 2. Hx GERD, quiescent 3. Labs reviewed Result Diagram: 05/06/183 05/06/18 0433 Results 24hrs Laboratory Tests Test 05/06/18 00:47 05/06/18 04:33 Lactic Acid Level 0.9 White Blood Count 5.9 Red Blood Count 3.98 L Hemoglobin 11.7 L Hematocrit 35.8 L Mean Corpuscular Volume 89.9 Mean Corpuscular Hemoglobin 29.4 Mean Corpuscular Hemoglobin Concent 32.7 Red Cell Distribution Width 12.0 Platelet Count 156 Mean Platelet Volume 10.4 Immature Granulocytes % 0.200 Neutrophils % 67.2 Lymphocytes % 19.7 Monocytes % 11.9 H Eosinophils % 0.8 Basophils % 0.2 Nucleated Red Blood Cells % 0.0 Immature Granulocytes # 0.010 Neutrophils # 4.0 Lymphocytes # 1.2 Monocytes # 0.7 Eosinophils # 0.1 Basophils # 0.0 Nucleated Red Blood Cells # 0.0 Sodium Level 141 Potassium Level 4.1 Chloride Level 104 Carbon Dioxide Level 32 H Anion Gap 5 Blood Urea Nitrogen 6 L Creatinine 0.99 Est Glomerular Filtrat Rate mL/min > 60 Glucose Level 97 Calcium Level 8.5 Phosphorus Level 3.3 Magnesium Level 2.0 Consultation Date/Type/Reason Admit Date/Time May 04, 2018 at 06:12 Initial Consult Date Detailed Summary Respiratory: cough (mild and not productive) Cardiovascular: No chest pain Gastrointestinal: no complaints Genitourinary: no complaints Musculoskeletal: back pain (is less) Exam/Review of Systems Vital Signs Vitals Vital Signs Date Temp Pulse Resp B/P (MAP) Pulse Ox O2 O2 Flow FiO2 Time Delivery Rate 05/06/18 98.1 83 17 120/76 98 Room Air 07:22 (91) Intake and Output 05/05/18 05/05/18 05/06/18 1515:00 23:00 07:00 IntakeIntake Total 1260 ml 1040 ml 1560 ml OutputOutput Total 1600 ml 2500 ml BalanceBalance 1260 ml -560 ml -940 ml Exam Neck: No jvd Respiratory: clear to auscultation Cardiovascular: regular rate and rhythm Gastrointestinal: soft Extremities: No edema, No tenderness Medications Medications Current Medications Acetaminophen/ Hydrocodone Bitart ([place] (5/325)) 1 tab Q4H PRN PO PAIN LEVEL 1-5; Start 05/04/18 at 14:00 Acetaminophen/ Hydrocodone Bitart ([place] (5/325)) 2 tab Q4H PRN PO PAIN LEVEL 6-10 Last administered on 05/06/18 09:47; Admin Dose 2 TAB; Start 05/04/18 at 14:00 Prochlorperazine (Compazine) 10 mg Q4H PRN PO NAUSEA AND/OR VOMITING; Start 05/04/18 at 14:00 Ondansetron HCl (Zofran Inj) 4 mg Q6H PRN IV NAUSEA AND/OR VOMITING; Start 05/04/18 at 14:00 Al Hydrox/Mg Hydrox/Simethicone (Mag-Al Plus) 15 ml Q4H PRN PO CONSTIPATION; Start 05/04/18 at 14:00 Docusate Sodium (Colace) 100 mg BID PO Last administered on 05/06/18at 09:44; Admin Dose 100 MG; Start 05/05/18 at 09:00 Acetaminophen (Tylenol Tab) 650 mg Q4H PRN PO FEVER Last administered on 05/06/18 07:42; Admin Dose 650 MG; Start 05/04/18 at 14:00 IV Flush (NS 3 ml) 3 ml PER PROTOCOL IV ; Start 05/04/18 at 14:00 Naloxone HCl (Narcan) 0.2 mg Q2M PRN IV overdose; Start 05/04/18 at 14:00 Escitalopram Oxalate (Lexapro) 20 mg DAILY PO Last administered on 05/06/18at 09:45; Admin Dose 20 MG; Start 05/05/18 at 09:00 Pantoprazole (Protonix Tab) 40 mg DAILY@06 PO Last administered on 05/06/18 06:23; Admin Dose 40 MG; Start 05/05/18 at 06:00 Ranitidine HCl (Zantac) 150 mg HS PO Last administered on 05/05/18at 20:08; Admin Dose 150 MG; Start 05/04/18 at 21:00 Sodium Chloride 1,000 ml @ 80 mls/hr [id number] IV Last administered on 05/06/18at 03:12; Admin Dose 80 MLS/HR; Start 05/04/18 at 16:00 Methocarbamol (Robaxin) 500 mg Q8H PRN PO pain Last administered on 05/05/18at 18:49; Admin Dose 500 MG; Start 05/04/18 at 20:00 Hydromorphone HCl (Dilaudid) 0.5 mg Q3H PRN IV SEVERE PAIN LEVEL 7-10; Start 05/06/18 at 09:00 MIGUEL ANGEL BROCK MD May 06, 2018 11:25
--- NOTE | 2018-05-06 13:14 | NUR ---
PT NOTES : S: pt c/o pain on the back area 08/08 . pre medicated . O: Cleared by RN to be seen today , pt agreeable to participate . Received pt in semifowlers position . reviewed donning and doffing of brace, pt has a good understanding and shows good return demonstration. Pt is MOD IND in bed mobility ( log rolling and supine <> sit ) and requires SUP in functional transfers with vc in tasks sequencing and safety . Pt was able to perform gait training using FWW x SUP x 100 ft followed by stair training x SBA x 10 steps x 1 reps with the use of 1 siderails . Pt may transfer with the assistance of nursing staff in the meantime . Assisted pt back to be d with all needs within reach , enodrsed to RN after tx. A: Pt will benefit in continuing skilled PT to maximize IND in all functional mobility and be able to return to home . Pt will have a good family support once d/c home and may benefit in having FWW for community ambulation. P: continue with POC Addendum: 05/06/18 at 1321 by DEBI WEBER PT Amended: Links added.
[2018-05-06] MEDS: METHOCARBAMOL 500 MG TAB PO PRN (13:16)
[2018-05-06 14:56] VITALS: BP 116/72; PULSE 81; RESP 14
--- NOTE | 2018-05-06 15:14 | NUR ---
PT NOTES ( 2ND SESSION) S: pt c/o pain on the back area 12/08 . pre medicated . O: Cleared by RN to be seen today , pt agreeable to participate . Received pt in semifowler position . reviewed donning and doffing of brace, pt has a good understanding and shows good return demonstration. Pt is MOD IND in bed mobility ( log rolling and supine <> sit ) and requires Sup in functional transfers with vc in tasks sequencing and safety . Pt was able to perform gait training using FWW x SUP x 300 ft with vc in walker management and stepping strategies . Assisted pt back to bed with all needs within reach , enodrsed to RN after tx. A: Pt is showing significant improvement towards functional mobility Pt will benefit in continuing skilled PT to maximize IND in all functional mobility and be able to return to home . Pt will have a good family support once d/c home and may benefit in having FWW for community ambulation. P: continue with POC
--- NOTE | 2018-05-06 18:30 | NUR ---
EOSS; PT'S HEMODYNAMICS AND RESPIR. STATUS ARE STABLE. NO COMPLICATIONS. NO CHANGES IN CONDITION. PAIN MGMT IS EFFECTIVE. WILL CONT. MONITORING. WILL CONT. W/ THE PLAN OF CARE .
[2018-05-06 19:16] VITALS: BP 119/76; PULSE 76; RESP 16
[2018-05-06] MEDS: RANITIDINE 150 MG TAB PO SCH (20:05)
[2018-05-06] MEDS: HYDROmorphONE 0.5 MG/0.5 ML SYG IV PRN (20:07)
[2018-05-07] MEDS: HYDROCODONE/APAP (5/325) TAB PO PRN ×4 (00:44→12:13)
[2018-05-07 01:42] VITALS: BP 129/61; PULSE 65; RESP 16
--- NOTE | 2018-05-07 05:29 | NUR ---
END OF SHIFT NOTE: Pt have a low grade temp 100.5 yesterday night and pt c/o of feeling warm and requested Tylenol, pt had Tylenol and encouraged to use I/S. Pt temp decreased to 98.7 and pt feeling better. Given [place] for pain prn, No changed in condition. Call light within reach, Safety precautions maintained.
[2018-05-07] MEDS: PANTOPRAZOLE (EC) 40 MG TAB PO SCH (06:21)
[2018-05-07] MEDS: SOD CHLORIDE 0.9% 1,000 ML IV SCH (06:30)
[2018-05-07] MEDS: DOCUSATE SODIUM 100 MG CAP PO SCH (08:30)
[2018-05-07] MEDS: ESCITALOPRAM 10 MG TAB PO SCH (08:30)
--- NOTE | 2018-05-07 08:36 | CONS ---
Date/Time of Note Date/Time of Note DATE: 05/07/18 TIME: 08:35 Assessment/Plan Assessment/Plan Assessment/Plan 1. Stable post op lumbar back surgery 2. Can dc if ok with ortho and pt 3. GERD quiescent Result Diagram: 05/06/18 0433 05/06/18 0433 Consultation Date/Type/Reason Admit Date/Time May 04, 2018 at 06:12 Initial Consult Date Detailed Summary Respiratory: No cough, No shortness of breath Cardiovascular: No chest pain Gastrointestinal: no complaints Genitourinary: no complaints Musculoskeletal: back pain (less pain) Exam/Review of Systems Vital Signs Vitals Vital Signs Date Temp Pulse Resp B/P (MAP) Pulse Ox O2 O2 Flow FiO2 Time Delivery Rate 05/07/18 98.2 65 16 129/61 95 Room Air 01:42 (83) Intake and Output 05/06/18 05/06/18 05/07/18 1515:00 23:00 07:00 IntakeIntake Total 780 ml 650 ml 1000 ml OutputOutput Total 2000 ml 900 ml 900 ml BalanceBalance -1220 ml -250 ml 100 ml Exam Neck: No jvd Respiratory: clear to auscultation Cardiovascular: regular rate and rhythm Gastrointestinal: soft Extremities: No edema (and no calf tend) Medications Medications Current Medications Acetaminophen/ Hydrocodone Bitart ([place] (5/325)) 1 tab Q4H PRN PO PAIN LEVEL 1 -5; Start 05/04/18 at 14:00 Acetaminophen/ Hydrocodone Bitart ([place] (5/325)) 2 tab Q4H PRN PO PAIN LEVEL 6-10 Last administered on 05/07/18at 08:31; Admin Dose 2 TAB; Start 05/04/18 at 14:00 Prochlorperazine (Compazine) 10 mg Q4H PRN PO NAUSEA AND/OR VOMITING; Start 05/04/18 at 14:00 Ondansetron HCl (Zofran Inj) 4 mg Q6H PRN IV NAUSEA AND/OR VOMITING; Start 05/04/18 at 14:00 Al Hydrox/Mg Hydrox/Simethicone (Mag-Al Plus) 15 ml Q4H PRN PO CONSTIPATION; Start 05/04/18 at 14:00 Docusate Sodium (Colace) 100 mg BID PO Last administered on 05/07/18at 08:30; Admin Dose 100 MG; Start 05/05/18 at 09:00 Acetaminophen (Tylenol Tab) 650 mg Q4H PRN PO FEVER Last administered on 05/06/18 20:06; Admin Dose 650 MG; Start 05/04/18 at 14:00 IV Flush (NS 3 ml) 3 ml PER PROTOCOL IV ; Start 05/04/18 at 14:00 Naloxone HCl (Narcan) 0.2 mg Q2M PRN IV overdose; Start 05/04/18 at 14:00 Escitalopram Oxalate (Lexapro) 20 mg DAILY PO Last administered on 05/07/18 08:30; Admin Dose 20 MG; Start 05/05/18 at 09:00 Pantoprazole (Protonix Tab) 40 mg DAILY@06 PO Last administered on 05/07/18 06:21; Admin Dose 40 MG; Start 05/05/18 at 06:00 Ranitidine HCl (Zantac) 150 mg HS PO Last administered on 05/06/18 20:05; Admin Dose 150 MG; Start 05/04/18 at 21:00 Sodium Chloride 1,000 ml @ 80 mls/hr [id number] IV Last administered on 05/06/18 03:12; Admin Dose 80 MLS/HR; Start 05/04/18 at 16:00 Methocarbamol (Robaxin) 500 mg Q8H PRN PO pain Last administered on 05/06/18 13:16; Admin Dose 500 MG; Start 05/04/18 at 20:00 Hydromorphone HCl (Dilaudid) 0.5 mg Q3H PRN IV SEVERE PAIN LEVEL 7-10 Last administered on 05/06/18 20:07; Admin Dose 0.5 MG; Start 05/06/18 at 09:00 MIGUEL ANGEL BROCK MD May 07, 2018 08:36
--- NOTE | 2018-05-07 08:50 | NUR ---
PT NOTE Therapy day number 4 Subjective Current complaint of pain Pain Scale NUMERIC Pain Intensity 3 (0-10) Patient Stated Goal for Pain Relief 0 (0-10) Pain Level Comment back pain Transfer Training Start Time 08:50 Supine to Sit Independent Transfer Sit to Stand Ability Supervised Bed Mobility Sit to Supine Independent Additional Mobility Comments bed mobility w/HOB slightly elevated using BR log roll method Transfer Training End Time 09:05 Total Transfer Training Time 15 min (8-127) Patient uses wheelchair Not Applicable Gait Training Start Time 09:05 Gait Assist Levels Supervised Assistive Devices Front Wheel Walker Ambulation Distance 300 feet Additional Gait Comments steady pace, reciprocal gait, decreased step length/stride, steady gait Gait Training End Time 09:20 Total Gait Training Treatment Time 15 min (8-127) Stair Climbing Ability Supervised Number of Stairs 12 Stairs Additional Stairs Assist Comments 12 steps x 1 step to pattern using 1 rail L side Static Sitting Balance Good Dynamic Sitting Balance Good Standing Static Balance Good Dynamic Standing Balance Good Additional Balance Assessments Comments FWW Safety Judgement Good Activity Tolerance Good Equipment Present A pump Additional Equipment Present LSO Post Treatment Pain Intensity 3 0-10 Variance Documentation SEE BELOW AND PT NOTE Total Treament Time 30 min (8-127) Total Minutes 30 Total Units 2 PT Technical Record Comment PT NOTE S: Pt stated, "I am pretty good. Feeling better." Agreeable for PT and cleared per MAR [place]. O: Received pt in R side-lying, alert. Bed mobility w/HOB elevated using BR log roll method, Independent. Pt donned/doffed LSO at EOB Independently. STS to FWW Supervised. Gait training performed w/FWW 300' Supervised. Noted steady pace, reciprocal gait, decreased step length/stride, (B) shoulder tension, steady gait, and no LOB/buckling. Pt required Min VCs/TCs to increase nettie/step length/stride, and relax shoulders. Stair training performed 12 steps x 1 step to pattern using 1 rail L side Supervised, good demonstration. Assisted pt back to room BTB. Left pt in comfort position, call light/phone within reach, bed alarmed, and all needs met. MAR [place] informed of pt's status. A: Good tolerance to tx. Pt showed no signs of distress or SOB during or after tx. No c/o dizziness or nausea throughout tx. Bed mobility and stair training improved compared to previous tx. Pt able to maintain spinal precautions throughout tx. P: Continue POC and progress as tolerated.
[2018-05-07] MEDS: METHOCARBAMOL 500 MG TAB PO PRN (10:07)
--- NOTE | 2018-05-07 11:36 | NUR ---
PT NOTE Therapy day number 4 Subjective Denies pain Pain Scale NUMERIC Pain Intensity 0 (0-10) Patient Stated Goal for Pain Relief 0 (0-10) Pain Level Comment Denies pain at rest Transfer Training Start Time 11:36 Supine to Sit Independent Transfer Sit to Stand Ability Modified Independent Bed Mobility Sit to Supine Independent Additional Mobility Comments bed mobility w/HOB slightly elevated log roll method Transfer Training End Time 11:45 Total Transfer Training Time 9 min (8-127) Patient uses wheelchair Not Applicable Gait Training Start Time 11:45 Gait Assist Levels Supervised Assistive Devices None Front Wheel Walker Ambulation Distance 350 feet Additional Gait Comments steady pace, reciprocal gait, and steady gait w/no LOB/buckling Gait Training End Time 12:15 Total Gait Training Treatment Time 30 min (8-127) Stair Climbing Ability Supervised Number of Stairs 12 Stairs Additional Stairs Assist Comments 12 steps x 1 step to pattern using 1 rail L side Static Sitting Balance Good Dynamic Sitting Balance Good Standing Static Balance Good Dynamic Standing Balance Good Additional Balance Assessments Comments w/FWW first 80' and no AD 270' Safety Judgement Good Activity Tolerance Good Equipment Present A pump Additional Equipment Present LSO Post Treatment Pain Intensity 4 0-10 Variance Documentation SEE BELOW AND PT NOTE Total Treament Time 39 min (8-127) Total Minutes 39 Total Units 3 PT Technical Record Comment PT NOTE S: Pt stated, "I am fine and no pain right now since I am just laying in bed." Agreeable for PT and cleared per MAR [place]. O: Received pt in semi-fowlers, alert. Bed mobility w/HOB elevated Independent. Pt donned/doffed LSO at EOB Independently. STS to FWW Supervised. Gait training performed w/FWW 80' and w/no AD 170' Supervised. Noted steady pace, reciprocal gait, and steady gait w/no LOB/buckling. Stair training performed 12 steps x 1 step to pattern using 1 rail L side Supervised, good demonstration. Assisted pt back to room to toilet per pt's request, Independent. Assisted pt BTB. Left pt in comfort position, call light/phone within reach, bed alarmed, and all needs met. MAR [place] informed of pt's status. A: Good tolerance to tx. Pt showed no signs of distress or SOB during or after tx. No c/o dizziness or nausea throughout tx. Transfers and gait distance improved compared to previous tx. Reviewed spinal precautions, good pt verbal/demonstration. Pt able to maintain spinal precautions throughout tx. Pt has met PT goals w/Supervision for gait due to pt reporting intermittent L thigh numbness, RN aware. P: Continue POC and progress as tolerated. Addendum: 05/07/18 at 1322 by GERTRUDE ALBRIGHT PT Pt has met physical therapy goals, able to amb at least 150' safely (with and without AD) and negotiate a flight of stairs. Pt able to verbalize spinal precautions and don LSO independently. No further skilled acute care PT needed at this time. Anticipating home discharge once cleared by .
[2018-05-07] MEDS: HYDROmorphONE 0.5 MG/0.5 ML SYG IV PRN (14:43)
--- NOTE | 2018-05-07 14:44 | PDOCDIS ---
Discharge Instructions CONDITION [id number] Patient Condition: [id number] Good HOME CARE INSTRUCTIONS: [id number] Diet Instructions: [id number] Regular [id number] Special Diet: Tetxi0e regular ACTIVITY: [id number] Activity Restrictions: Mueoe8m Avoid heavy lifting Do not operate Machinery Avoid Heavy Housework [id number] Bathing Restrictions: [id number] Shower FOLLOW UP/APPOINTMENTS Follow-up Plan Follow-up with Dr. Swenson in 2 weeks AUTUMN SWENSON MD May 07, 2018 14:44
--- NOTE | 2018-05-25 15:02 | DS ---
DATE OF ADMISSION: 05/04/2018 DATE OF DISCHARGE: 05/07/2018 DISPOSITION: Home. DIAGNOSES ON ADMISSION: L4 to L5 severe degenerative disk disease with bilateral foraminal stenosis with radiculopathy. DISCHARGE DIAGNOSES: L4 to L5 severe degenerative disk disease with bilateral foraminal stenosis wit h radiculopathy. PROCEDURES PERFORMED DURING THIS ADMISSION: On 05/04/2018, the patient underwent an anterior lumbar interbody fusion at L4 to L5 with instrumented fusion. HOSPITAL COURSE: The patient's hospital course was uncomplicated. Prior to discharge, he was cleare d by physical therapy. He was passing gas. He was tolerating a regular diet. His pain is under goo d control with p.o. pain medications. MEDICATIONS AT DISCHARGE: The patient was told to resume all home pain medications. He was placed o n [place] 1 to 2 tabs 5/325 mg q.4 to 6 hours p.r.n. pain. FOLLOWUP APPOINTMENTS: The patient was told to follow up with Dr. Steiner 1 to 2 weeks for repeat evaluation. He was told to contact our office at an earlier time if he developed any fevers, chills, chest pain, shortness of breath or issues with his wound. DIET AT DISCHARGE: Regular. ACTIVITY AT DISCHARGE: The patient was told to avoid any heavy lifting greater than 10 to 20 pounds. He was told to avoid any activities that will require excessive bending or twisting or lifting. Dictated By: AUTUMN MOLINA/KAREEM Conf#: [id number] DID#: [id number] CC: MIGUEL ANGEL BROCK MD;*End*
== END 2018-05-07 15:20 | disposition home or self-care (01) | DRG 455 ==
LOC: REC 06:12 → MS1 16:17
PROVIDERS: ADMIT Orthopaedic Surgery; ATTEND Orthopaedic Surgery
PROC: 0SG00K1 Fusion of Lumbar Vertebral Joint with Nonautologous Tissue Substitute, Posterior Approach, Posterior Column, Open Approach (ICD-10-PCS; 2018-05-04)
PROC: 0SB20ZZ Excision of Lumbar Vertebral Disc, Open Approach (ICD-10-PCS; 2018-05-04)
PROC: 0DNW0ZZ Release Peritoneum, Open Approach (ICD-10-PCS; 2018-05-04)
PROC: 3E0U0GB Introduction of Recombinant Bone Morphogenetic Protein into Joints, Open Approach (ICD-10-PCS; 2018-05-04)
PROC: 4A11X4G Monitoring of Peripheral Nervous Electrical Activity, Intraoperative, External Approach (ICD-10-PCS; 2018-05-04)
PROC: 0SG00A0 Fusion of Lumbar Vertebral Joint with Interbody Fusion Device, Anterior Approach, Anterior Column, Open Approach (ICD-10-PCS; principal; 2018-05-04 08:00)
DX: M51.16 Intervertebral disc disorders with radiculopathy, lumbar region (principal); M48.061 Spinal stenosis, lumbar region without neurogenic claudication; K21.9 Gastro-esophageal reflux disease without esophagitis; F32.9 Major depressive disorder, single episode, unspecified; K66.0 Peritoneal adhesions (postprocedural) (postinfection)
CPT/HCPCS: 72100; 80048; 83605; 83735; 84100; 85014; 85018; 85025; 86850; 86900; 86901; 86920; 87040; 87086; 97116; 97161; 97530; C1762; J0690; J1100; J1170; J1644; J1885; J2250; J2405; J2765; J3010; J7030; L0639; L8699